=== PATIENT | male | born 1975 | race Caucasian/White ===

== ENCOUNTER 2022-05-30 13:56 | Emergency (ER) | payer MEDICAID ==
[~2022-05-30] VITALS: Ht 167.6 cm; Wt 81.1 kg
[2022-05-30] MEDS ORDERED: NALOXONE HCL 1 MG/ML 2 ML SYRINGE SQ ONE (15:00)
[2022-05-30 20:37] VITALS: BP 141/84
== END 2022-05-30 20:52 | disposition home or self-care (01) ==
LOC: EDUNIT# 13:56 → EMS 14:01
DX: T43.651A Poisoning by methamphetamines accidental (unintentional), initial encounter (principal); F15.90 Other stimulant use, unspecified, uncomplicated; F17.210 Nicotine dependence, cigarettes, uncomplicated
CPT/HCPCS: 99285; Z7502

== ENCOUNTER 2022-11-11 00:07 | Emergency (ER) | payer MEDICAID ==
[~2022-11-11] VITALS: Ht 165.1 cm; Wt 76.4 kg
[2022-11-11 00:24] VITALS: BP 156/87
== END 2022-11-11 00:28 | disposition left against medical advice (07) ==
LOC: EMS 00:08
DX: Z53.21 Procedure and treatment not carried out due to patient leaving prior to being seen by health care provider (principal)
CPT/HCPCS: 99281; Z7502